=== PATIENT | male | born 1975 | race Caucasian/White ===

== ENCOUNTER 2017-05-10 20:31 | Emergency (ER) | payer SELFPAY ==
[2017-05-10 23:55] VITALS: BP 123/74
== END 2017-05-10 23:55 | disposition home or self-care (01) ==
LOC: ED 20:31
DX: L03.116 Cellulitis of left lower limb (principal); L30.9 Dermatitis, unspecified; R03.0 Elevated blood-pressure reading, without diagnosis of hypertension
CPT/HCPCS: J0696; J7512

== ENCOUNTER 2017-05-15 18:17 | Emergency (ER) | payer SELFPAY ==
[2017-05-15 23:04] VITALS: BP 122/77
== END 2017-05-15 23:04 | disposition home or self-care (01) ==
LOC: ED 18:17
DX: T63.481A Toxic effect of venom of other arthropod, accidental (unintentional), initial encounter (principal); M79.89 Other specified soft tissue disorders; Y92.89 Other specified places as the place of occurrence of the external cause